=== PATIENT | female | born 1950 | race Caucasian/White ===

== ENCOUNTER → 2016-09-23 | Outpatient (CLI) | payer MEDICARE, BC ==
--- NOTE | 2016-09-23 10:53 | MM ---
Reason for exam: additional evaluation requested from prior study. Last mammogram was performed 1 year ago. History: Patient is postmenopausal, has history of other cancer at age 59, has history of breast cancer at age 49, and is nulliparous. Family history of breast cancer in mother at age 69. 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 Malignant excisional biopsy of the left breast, August 20, 1999. Cyst aspiration of the left breast. Lumpectomy of the left breast. Radiation therapy of the left breast. Took antineoplastic for 5 years 9 months beginning at age 49. Physical Findings: Nurse did not find any significant physical abnormalities on exam. MG 3D Diag Mammo W/Cad MACI Bilateral CC and MLO view(s) were taken. XCCL and spot compression XCCM view(s) were taken of the left breast. Prior study comparison: September 19, 2015, bilateral MG 3d diag mammo w/cad MACI. September 17, 2014, bilateral MG diagnostic mammo w CAD MACI. August 14, 2013, CAD bilateral diagnostic mammogram. March 23, 2012, CAD bilateral diagnostic mammogram. The breast tissue is heterogeneously dense. This may lower the sensitivity of mammography. Post surgical and post therapy changes in the left breast with surgical clips and fat necrosis calcifications. No significant new findings when compared with previous films. These results were verbally communicated with the patient and result sheet given to the patient on 09/23/16. ASSESSMENT: Benign, BI-RAD 2 RECOMMENDATION: Follow-up diagnostic mammogram of both breasts in 1 year.
== END | disposition home or self-care (01) ==
LOC: RADMAMWWP 10:05
PROVIDERS: ATTEND Family Medicine
DX: Z08 Encounter for follow-up examination after completed treatment for malignant neoplasm (principal); Z85.3 Personal history of malignant neoplasm of breast
CPT/HCPCS: G0204; G0279

== ENCOUNTER 2017-04-09 10:43 | Emergency (ER) | payer MEDICARE, BC ==
[2017-04-09] MEDS ORDERED: HYDROcodone/APAP 7.5-325MG 1 EACH TAB PO ONE (11:21)
--- NOTE | 2017-04-09 11:28 | ED ---
Wound/Laceration HPI - General Source: patient, RN notes reviewed Mode of arrival: wheelchair Limitations: no limitations <Jeremy Rodgers - Last Filed: 04/09/17 12:29> <Galo Milner - Last Filed: 04/09/17 16:43> - General Chief Complaint: Wound/Laceration Stated Complaint: FALL, RT ARM INJURY/LACERATION Time Seen by Provider: 04/09/17 11:19 - History of Present Illness Initial Comments: This a 66-year-old female presents emergency Department chief complaint right forearm laceration. Patient states she was out watering her virgen states she went step off edge of the back states that she slipped and cut her arm on the neck. Patient's tetanus is up-to-date within last 5 years. She denies any head injury no LOC. Patient states her arm is very painful, she has good range of motion of her right elbow, right wrist. Patient denies any other notable injuries at this time patient states she is able to ambulate without difficulty. (Jeremy Rodgers) - Related Data Previous Rx's Medication Instructions Recorded Cephalexin [Keflex] 500 mg PO Q6HR #28 cap 04/09/17 Hydrocodone/Acetaminophen [Yellow Jacket 1 tab PO Q6HR PRN #15 tab 04/09/17 5-325] Ondansetron Odt [Zofran Odt] 4 mg PO Q8HR PRN #10 tab 04/09/17 Allergies Allergy/AdvReac Type Severity Reaction Status Date / Time Sulfa (Sulfonamide AdvReac Rash/Hives Verified 04/09/17 10:48 Antibiotics) Review of Systems ROS Other: All systems not noted in ROS Statement are negative. <Jeremy Rodgers - Last Filed: 04/09/17 12:29> ROS Other: All systems not noted in ROS Statement are negative. <Galo Milner - Last Filed: 04/09/17 16:43> ROS Statement: Those systems with pertinent positive or pertinent negative responses have been documented in the HPI. Past Medical History Past Medical History: No Reported History History of Any Multi-Drug Resistant Organisms: None Reported Additional Past Surgical History / Comment(s): lumpectomy Past Psychological History: No Psychological Hx Reported Smoking Status: Never smoker Past Alcohol Use History: None Reported Past Drug Use History: None Reported <Jeremy Rodgers - Last Filed: 04/09/17 12:29> General Exam Limitations: no limitations General appearance: alert, in no apparent distress Head exam: Present: atraumatic, normocephalic, normal inspection Eye exam: Present: normal appearance, PERRL, EOMI. Absent: scleral icterus, conjunctival injection, periorbital swelling ENT exam: Present: normal exam, mucous membranes moist Neck exam: Present: normal inspection, full ROM. Absent: tenderness, meningismus, lymphadenopathy Respiratory exam: Present: normal lung sounds bilaterally. Absent: respiratory distress, wheezes, rales, rhonchi, stridor Cardiovascular Exam: Present: regular rate, normal rhythm, normal heart sounds. Absent: systolic murmur, diastolic murmur, rubs, gallop, clicks Extremities exam: Present: other (Right forearm there is a 6 cm total length irregular laceration slightly V-shaped there is no foreign bodies noted patient has full strength of right hand, wrist and right elbow full range of motion vascular intact) Neurological exam: Present: alert, oriented X3, CN II-XII intact, reflexes normal. Absent: motor sensory deficit Skin exam: Present: warm, dry <Jeremy Rodgers - Last Filed: 04/09/17 12:29> Procedures - Laceration Laceration #1 Consent Obtained: verbal consent Indication: laceration Site: upper extremity (Right forearm) Size (cm): 6 Description: flap, irregular Depth: simple, single layer Anesthetic Used: lidocaine 1%, without epi Anesthesia Technique: local infiltration Amount (mls): 8 Pre-repair: wound explored, irrigated extensively, deep structures intact Type of Sutures: nylon Size of Sutures: 4-0 Number of Sutures: 16 Technique: simple, interrupted Patient Tolerated Procedure: no complications <Jeremy Rodgers - Last Filed: 04/09/17 12:29> Medical Decision Making <Jeremy Rodgers - Last Filed: 04/09/17 12:29> <Galo Milner - Last Filed: 04/09/17 16:43> - Medical Decision Making 66-year-old female presented emergency from for right forearm injury, laceration. Patient had a fall there is no acute fracture. Patient's tetanus is up-to-date. Patient had no other acute injuries no head injury no LOC. Patient's laceration was thoroughly cleaned, closed with sutures patient was given wound care instructions were return in 10 days for suture removal patient we discharge on antibiotics at this time due to the nature of the injury and . Patient will follow with PCP in 2 days for recheck. (Jeremy Rodgers) 66-year-old female presenting with right forearm laceration. Patient's tetanus is up-to-date. X-ray shows no foreign body. Laceration is repaired in the emergency department. Patient will follow up with primary care physician. Return with signs of infection. (aGlo Milner) Disposition Time of Disposition: 12:31 <Jeremy Rodgers - Last Filed: 04/09/17 12:29> <Galo Milner - Last Filed: 04/09/17 16:43> Clinical Impression: Fall, Laceration of right forearm Disposition: HOME SELF-CARE Condition: Stable Instructions: Care For Your Stitches (ED), Laceration (ED) Additional Instructions: Please return to the Emergency Department if symptoms worsen or any other concerns. Prescriptions: Cephalexin [Keflex] 500 mg PO Q6HR #28 cap Hydrocodone/Acetaminophen [Yellow Jacket 5-325] 1 tab PO Q6HR PRN #15 tab PRN Reason: Pain Ondansetron Odt [Zofran Odt] 4 mg PO Q8HR PRN #10 tab PRN Reason: Nausea Referrals: Lianna Holman MD [Primary Care Provider] - 1-2 days
--- NOTE | 2017-04-09 11:40 | XR ---
EXAMINATION TYPE: XR forearm RT , 2 VIEWS DATE OF EXAM ORDERED: 04/09/2017 HISTORY: Pain. COMPARISON: None. FINDINGS: There is a soft tissue defect in the medial aspect of the forearm. No fracture, dislocatio n or radiopaque foreign body is seen. IMPRESSION: NO ACUTE OSSEOUS LESION.
[2017-04-09] MEDS ORDERED: ONDANSETRON ODT 4 MG TAB PO STA (12:00)
[2017-04-09 12:44] VITALS: BP 137/85; PULSE 75; RESP 17; TEMP 97.9
== END 2017-04-09 12:42 | disposition home or self-care (01) ==
LOC: EC 10:43
DX: S51.811A Laceration without foreign body of right forearm, initial encounter (principal); Z88.2 Allergy status to sulfonamides; W26.8XXA Contact with other sharp object(s), not elsewhere classified, initial encounter; Y93.89 Activity, other specified
CPT/HCPCS: 12002; 99283

== ENCOUNTER → 2017-09-16 | Outpatient (CLI) | payer MEDICARE, BC ==
--- NOTE | 2017-09-16 14:12 | MM ---
Reason for exam: clinical finding. Last mammogram was performed 1 year ago. History: Patient is postmenopausal, has history of other cancer at age 59, has history of breast cancer at age 49, and is nulliparous. Family history of breast cancer in mother at age 69. 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 Malignant excisional biopsy of the left breast, August 20, 1999. Cyst aspiration of the left breast. Lumpectomy of the left breast. Radiation therapy of the left breast. Took antineoplastic for 5 years 9 months beginning at age 49. Physical Findings: Nurse did not find any significant physical abnormalities on exam. MG 3D Diag Mammo W/Cad MACI Bilateral CC and MLO view(s) were taken. Prior study comparison: September 23, 2016, bilateral MG 3d diag mammo w/cad MACI. September 19, 2015, bilateral MG 3d diag mammo w/cad MACI. The breast tissue is heterogeneously dense. This may lower the sensitivity of mammography. No suspicious abnormality. Post therapy change on the left breast. No significant new findings when compared with previous films. These results were verbally communicated with the patient and result sheet given to the patient on 09/16/17. ASSESSMENT: Benign, BI-RAD 2 RECOMMENDATION: Routine screening mammogram of both breasts in 1 year.
--- NOTE | 2017-09-16 14:14 | USB ---
Reason for exam: clinical finding. History: Patient is postmenopausal, has history of other cancer at age 59, has history of breast cancer at age 49, and is nulliparous. Family history of breast cancer in mother at age 69. 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 Malignant excisional biopsy of the left breast, August 20, 1999. Cyst aspiration of the left breast. Lumpectomy of the left breast. Radiation therapy of the left breast. Took antineoplastic for 5 years 9 months beginning at age 49. US Breast RT Right breast ultrasound includes all four quadrants, the retroareolar region and axilla. Finding demonstrates no cystic or solid lesion seen. No cystic or solid mass. No suspicious sonographic finding. These results were verbally communicated with the patient and result sheet given to the patient on 09/16/17. ASSESSMENT: Benign, BI-RAD 2 RECOMMENDATION: Routine screening mammogram of both breasts in 1 year. Manage patient on a clinical basis.
== END | disposition home or self-care (01) ==
LOC: RADMAMWWP 12:44
PROVIDERS: ATTEND Family Medicine
DX: N63.11 Unspecified lump in the right breast, upper outer quadrant (principal); Z85.3 Personal history of malignant neoplasm of breast
CPT/HCPCS: 77066; 76641; G0279

== ENCOUNTER → 2018-10-23 | Outpatient (CLI) | payer MEDICARE, BC ==
--- NOTE | 2018-10-23 17:21 | BD ---
EXAMINATION TYPE: Axial Bone Density DATE OF EXAM: 10/23/2018 COMPARISON: NONE CLINICAL HISTORY: 68-year-old female asymptomatic postmenopausal screening Height: 62.5 IN Weight: 156 LBS FRAX RISK QUESTIONS: History of Fracture in Adulthood: LT WRIST FX AGE 66 RISK FACTORS HISTORY OF: History of Wrist Fracture: LEFT When: AGE 66 Family History of Osteoporosis: GRANDMOTHER(P), AUNT (M) Active: YES Postmenopausal woman: AGE 49 MEDICATIONS: Thyroid Medications: YES Which medication: LEVOTHYROXINE How Lon+ YEARS Additional Medications: LEVOTHYROXINE, HCTZ, DETROL, VYTORIN, SERTRALINE, ALPRAZOLAM, ACETAMINOPHEN, ZOLPIDEM TARTARATED TABS, Additional History: BREAST CANCER WITH RADIATION AGE 49 EXAM MEASUREMENTS: Bone mineral densitometry was performed using the [employer] System. Bone mineral density as measured about the Lumbar spine is: ----- L1-L4(G/cm2): 1.051 T Score Values are as follows: ----- L2: -2.2 ----- L3: -0.7 ----- L4: 0.9 ----- L1-L4: -1.1 Bone mineral density BASELINE Bone mineral density about the R hip (g/cm2): 0.784 Bone mineral density about the L hip (g/cm2): 0.747 T Score values are as follows: -----R Neck: -1.8 -----L Neck: -2.1 -----R Total: -1.0 -----L Total: -1.5 Bone mineral density BASELINE IMPRESSION: Osteopenia (T Score between -2.5 and -1). There is slightly increased risk of fracture and the patient may be considered for treatment. Re-Screen 2-5 years. NOTE: T-SCORE=SD OF THE YOUNG ADULT MEAN.
--- NOTE | 2018-10-24 13:04 | MM ---
Reason for exam: screening (asymptomatic). Last mammogram was performed 1 year and 1 month ago. History: Patient is postmenopausal, has history of other cancer at age 59, has history of breast cancer at age 49, and is nulliparous. Family history of breast cancer in mother at age 69. 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 Malignant excisional biopsy of the left breast, August 20, 1999. Cyst aspiration of the left breast. Lumpectomy of the left breast. Radiation therapy of the left breast. Took antineoplastic for 5 years 9 months beginning at age 49. Physical Findings: A clinical breast exam by your physician is recommended on an annual basis and results should be correlated with mammographic findings. MG 3D Screening Mammo W/Cad Bilateral CC and MLO view(s) were taken. Prior study comparison: September 16, 2017, bilateral MG 3d diag mammo w/cad MACI. September 23, 2016, bilateral MG 3d diag mammo w/cad MACI. The breast tissue is heterogeneously dense. This may lower the sensitivity of mammography. Post surgical and post therapy changes left breast with deformity, fat necrosis calcifications and surgical clips. No significant changes when compared with prior studies. ASSESSMENT: Benign, BI-RAD 2 RECOMMENDATION: Routine screening mammogram of both breasts in 1 year.
== END | disposition home or self-care (01) ==
LOC: RADMAMWWP 15:09
PROVIDERS: ATTEND Family Medicine
DX: Z12.31 Encounter for screening mammogram for malignant neoplasm of breast (principal); M85.88 Other specified disorders of bone density and structure, other site; Z78.0 Asymptomatic menopausal state
CPT/HCPCS: 77063; 77067; 77080

== ENCOUNTER → 2020-12-22 | Outpatient (CLI) | payer MEDICARE, BC ==
--- NOTE | 2020-12-23 09:08 | MM ---
Reason for exam: screening (asymptomatic). Last mammogram was performed 2 years and 2 months ago. History: Patient is postmenopausal, has history of other cancer at age 59, has history of breast cancer at age 49, and is nulliparous. Family history of breast cancer in mother at age 69. 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 Malignant excisional biopsy of the left breast, August 20, 1999. Cyst aspiration of the left breast. Lumpectomy of the left breast. Radiation therapy of the left breast. Took antineoplastic for 5 years 9 months beginning at age 49. Physical Findings: A clinical breast exam by your physician is recommended on an annual basis and results should be correlated with mammographic findings. MG 3D Screening Mammo W/Cad Bilateral CC and MLO view(s) were taken. Prior study comparison: September 16, 2017, bilateral MG 3d diag mammo w/cad MACI. September 19, 2015, bilateral MG 3d diag mammo w/cad MACI. The breast tissue is heterogeneously dense. This may lower the sensitivity of mammography. Finding #1: There are typically benign vascular calcifications in the right breast. Finding #2: There is stable, decreased in size architectural distortion and dystrophic calcifications with clip in the left breast consistent with know treatment change from left breast cancer. There is no discrete abnormality. ASSESSMENT: Benign, BI-RAD 2 RECOMMENDATION: Routine screening mammogram of both breasts in 1 year.
== END | disposition home or self-care (01) ==
LOC: RADMAMWWP 10:11
PROVIDERS: ATTEND Family Medicine
DX: Z12.31 Encounter for screening mammogram for malignant neoplasm of breast (principal); Z78.0 Asymptomatic menopausal state; Z85.3 Personal history of malignant neoplasm of breast; Z80.3 Family history of malignant neoplasm of breast
CPT/HCPCS: 77063; 77067

== ENCOUNTER → 2022-03-03 | Outpatient (CLI) | payer MEDICARE, BC ==
--- NOTE | 2022-03-05 08:31 | MM ---
Reason for Exam: Screening (asymptomatic). Last mammogram was performed 1 year(s) and 2 month(s) ago. Patient History: Menarche at age 11. Patient has no children. Postmenopausal. Breast cancer, left, age 49. Other cancer, age 59. Lumpectomy on the Left side. Cyst Aspiration on the Left side. 08/20/1999, Malignant Excisional Biopsy on the left side. 09/08/1999, Malignant Quadrantectomy on the left side. Radiation Therapy, left. Mother had breast cancer, age 69. Prior Study Comparison: 09/16/2017 Bilateral Diagnostic Mammogram, [facility]. 10/23/2018 Bilateral Screening Mammogram, [facility]. 12/22/2020 Bilateral Screening Mammogram, [facility]. Tissue Density: The breast tissue is extremely dense which could obscure a lesion on mammography. Findings: Analyzed By CAD. Postoperative changes left breast with the dystrophic calcifications seen. No mass or suspicious calcifications right breast at this time. Overall Assessment: Benign, BI-RAD 2 Management: Screening Mammogram of both breasts in 1 year. A clinical breast exam by your physician is recommended on an annual basis and results should be correlated with mammographic findings. Electronically signed and approved by: Scott Anders M.D. Radiologis
--- NOTE | 2022-03-05 15:08 | BD ---
EXAMINATION TYPE: Axial Bone Density DATE OF EXAM: 03/03/2022 COMPARISON: 10.23.2018 CLINICAL HISTORY: 71 years year old Female. ICD-10 CODE: disoder of bone M85.9 Height: 62.4 Weight: 156 FRAX RISK QUESTIONS: Family History (Parent hip fracture): YES, NO FX History of Fracture in Adulthood: YES RISK FACTORS HISTORY OF: LT WRIST AT 66 YRS OLD History of Wrist Fracture: YES, LT AT 66 YRS OLD Family History of Osteoporosis: YES, Postmenopausal woman: AT 49 Hyperparathyroidism: NO Adrenal Insufficiency: NO MEDICATIONS: Thyroid Medications: YES, SYNTHROID FOR ABOUT 20 YRS Additional Medications: BP MEDS, XANAX, ZOLOFT, NSAIDS, PAIN MEDS, DETROL, HX OF RADIATION, CALCIUM, VIT D, STATIN FOR CHOLESTEROL Additional History: LBL, HYPERTENSION, ANXIETY/DEPRESSION, THYROID, CHRONIC PAIN, BREAST CANCER WITH RADIATION AT 49 YRS OLD, CHOLESTEROL, EXAM MEASUREMENTS: Bone mineral densitometry was performed using the [employer]. Bone mineral density as measured about the Lumbar spine is: ----- L1-L4(G/cm2): 0.925 T Score Values are as follows: ----- L1: -3.3 ----- L2: -2.2 ----- L3: -2.2 ----- L4: -0.4 ----- L1-L4: -2.1 Bone mineral density has: Decreased -11.4% since study of: 10.23.2018 Bone mineral density about the R hip (g/cm2): 0.855 Bone mineral density about the L hip (g/cm2): 0.781 T Score values are as follows: -----R Neck: -2.0 -----L Neck: -2.1 -----R Total: -1.2 -----L Total: -1.8 Bone mineral density has: Decreased -4.1% since study of: 10.23.2018 FRAX%s: The graph provided illustrates a 20.3% chance for a major osteoporotic fx and a 4.7% chance f or the hips probability for fx in 10 years time. IMPRESSION: Osteopenia (T Score between -2.5 and -1). There is slightly increased risk of fracture and the patient may be considered for treatment. Re-Screen 2-5 years. NOTE: T-SCORE=SD OF THE YOUNG ADULT MEAN.
== END | disposition home or self-care (01) ==
LOC: RADBDWWP 09:07
PROVIDERS: ATTEND Family Medicine
DX: Z12.31 Encounter for screening mammogram for malignant neoplasm of breast (principal); M81.0 Age-related osteoporosis without current pathological fracture; Z78.0 Asymptomatic menopausal state
CPT/HCPCS: 77063; 77067; 77080

== ENCOUNTER → 2023-03-09 | Outpatient (CLI) | payer MEDICARE, BC ==
--- NOTE | 2023-03-10 08:30 | MM ---
Reason for Exam: Screening (asymptomatic). Last mammogram was performed 1 year(s) and 1 month(s) ago. Patient History: Menarche at age 11. Patient has no children. Postmenopausal. Breast cancer, left, age 49. Other cancer, age 59. Lumpectomy on the Left side. Cyst Aspiration on the Left side. 08/20/1999, Malignant Excisional Biopsy on the left side. 09/08/1999, Malignant Quadrantectomy on the left side. Radiation Therapy, left. Mother had breast cancer, age 69. Prior Study Comparison: 10/23/2018 Bilateral Screening Mammogram, [facility]. 12/22/2020 Bilateral Screening Mammogram, [facility]. 03/03/2022 Bilateral MG 3D screening mammo w/cad, [facility]. Tissue Density: The breast tissue is heterogeneously dense. This may lower the sensitivity of mammography. Findings: Analyzed By CAD. Postsurgical changes with calcifications in the left. There is no suspicious group of microcalcifications or new suspicious mass in either breast. Overall Assessment: Benign, BI-RAD 2 Management: Screening Mammogram of both breasts in [address] [facility] will attempt to contact patient to return for supplemental views and ultrasound if indicated. Patient should continue monthly self-breast exams. A clinical breast exam by your physician is recommended on an annual basis. This exam should not preclude additional follow-up of suspicious palpable abnormalities. Note on Barbara scores and lifetime risk: 1. A Barbara score greater than 3% is considered moderate risk. If this is the case, consider specialist referral to assess eligibility for a risk reducing agent. 2. If overall lifetime risk for the development of breast cancer is 20% or higher, the patient may qualify for future screening with alternating mammogram and breast MRI. Electronically signed and approved by: Galo Coy DO
== END | disposition home or self-care (01) ==
LOC: RADMAMWWP 11:08
PROVIDERS: ATTEND Family Medicine
DX: Z12.31 Encounter for screening mammogram for malignant neoplasm of breast (principal); Z78.0 Asymptomatic menopausal state; Z80.3 Family history of malignant neoplasm of breast
CPT/HCPCS: 77063; 77067

== ENCOUNTER → 2023-08-26 | Outpatient (CLI) | payer MEDICARE, BC ==
--- NOTE | 2023-09-04 12:53 | MR ---
EXAMINATION TYPE: MR brain/orbits wo/w con DATE OF EXAM: 08/26/2023 2:23 PM CLINICAL INDICATION:Female, 73 years old with history of H53.19 SUBJECTIVE VISUAL DISTURBANCES; PHH, Visual disturbance. COMPARISON: None. TECHNIQUE: Multi planar, multi sequence imaging was performed through the orbits/face. Post contrast imaging was performed after the administration of 7 cc of Gadavist intravenously. FINDINGS, ORBITS: The globes appear symmetrical. Bilaterally aphakia. Signal intensity of the globes and optic nerves are within normal limits. The intraorbital fat appears preserved. Both lacrimal g lands are unremarkable. The extraocular muscles appear symmetric. After administration of contrast, n o abnormal enhancement is seen. FINDINGS, BRAIN: The moraes-white junctions, ventricular system, and cisterns do appear unremarkable. Diffusion-weighted imaging shows no evidence of restricted diffusion. Scattered foci of high T2 sig nal intensity are seen within the periventricular white matter. Cavernous sinus is within normal lewis its. After administration of contrast, no abnormal enhancement is seen within the brain. The bone marrow signal is within normal limits. Paranasal sinuses and mastoid air cells: Mild scattered paranasal sinus disease. IMPRESSION: 1. No evidence of intraorbital mass or significant abnormality. 2. No evidence of intracranial mass nor acute/subacute CVA accident. 3. Nonspecific white matter changes are identified likely small vessel ischemic disease.
== END | disposition home or self-care (01) ==
LOC: RADMRIMAIN 13:12
PROVIDERS: ATTEND Ophthalmology
DX: G93.89 Other specified disorders of brain (principal); H53.19 Other subjective visual disturbances; H53.42 Scotoma of blind spot area; H47.292 Other optic atrophy, left eye
CPT/HCPCS: 70543; 70553; A9585

== ENCOUNTER → 2023-10-25 | Outpatient (CLI) | payer MEDICARE, BC ==
--- NOTE | 2023-10-26 11:33 | US ---
EXAMINATION TYPE: US transvaginal DATE OF EXAM: 10/25/2023 COMPARISON: NONE CLINICAL INDICATION: Female, 73 years old with history of N95.0 POSTMENOPAUSAL BLEEDING; Pt states sh e had one day of spotting in September. G0. No pelvic surgeries. Hx of breast cancer. On tamoxifen from [id number]. Menopause around 24 years ago TECHNIQUE: Transvaginal (TV). Date of LMP: Around 24 years ago EXAM MEASUREMENTS: Uterus: 6.7 x 4.8 x 3.6 cm Endometrial Stripe: Not seen Right Ovary: Not seen due to bowel gas Left Ovary: Not seen due to bowel gas Proj Engineer notes:Slightly limited due to pt not tolerating transvaginal exam well. 1. Uterus: Anteverted Large hypoechoic area with calcifications seen measuring 3.4 x 3.5 x 3.3cm l ocated centrally within the uterus. 2. Endometrium: The above hypoechoic area obscures the endometrium. 3. Right Ovary: Not seen 4. Left Ovary: Not seen 5. Bilateral Adnexa: wnl 6. Posterior cul-de-sac: wnl IMPRESSION: 1. Rounded 3.5 cm heterogeneous structure with prominent calcification centered within the uterus. Co nsider large uterine fibroid with prominent submucosal component obscuring the endometrium. Given pat ient's postmenopausal bleeding, consider further CREATIVE ENGAGEMENT DIRECTOR evaluation. Also, female pelvic MRI can help assess the junctional anatomy. 2. Unable to visualize either ovary.
== END | disposition home or self-care (01) ==
LOC: RADUSWWP 15:55
PROVIDERS: ATTEND Family Medicine
DX: N95.0 Postmenopausal bleeding (principal); D25.0 Submucous leiomyoma of uterus; Z85.3 Personal history of malignant neoplasm of breast
CPT/HCPCS: 76830

== ENCOUNTER → 2024-04-10 | Outpatient (CLI) | payer MEDICARE, BC | END | disposition home or self-care (01) | LOC: LABPRL 10:15 | PROVIDERS: ATTEND Family Medicine | DX: I10 Essential (primary) hypertension (principal); E78.2 Mixed hyperlipidemia; E03.9 Hypothyroidism, unspecified | CPT/HCPCS: 80053; 80061; 84443; 85025 ==

== ENCOUNTER → 2024-05-15 | Outpatient (CLI) | payer MEDICARE, BC ==
--- NOTE | 2024-05-16 11:12 | MM ---
Reason for Exam: Screening (asymptomatic). Last mammogram was performed 1 year(s) and 2 month(s) ago. Patient History: Menarche at age 11. Patient has no children. Postmenopausal. Breast cancer, left, age 49. Other cancer, age 59. Lumpectomy on the Left side. Cyst Aspiration on the Left side. 08/20/1999, Malignant Excisional Biopsy on the left side. 09/08/1999, Malignant Quadrantectomy on the left side. Radiation Therapy, left. Mother had breast cancer, age 69. Prior Study Comparison: 12/22/2020 Bilateral Screening Mammogram, [facility]. 03/03/2022 Bilateral MG 3D screening mammo w/cad, [facility]. 03/09/2023 Bilateral MG 3D screening mammo w/cad, [facility]. Tissue Density: The breasts are heterogeneously dense, which may obscure small masses. Findings: Analyzed By CAD. There is no suspicious group of microcalcifications or new suspicious mass in either breast. Colectomy changes left breast with dense calcifications noted. No recurrent mass seen. Overall Assessment: Benign, BI-RAD 2 Management: Screening Mammogram of both breasts in 1 year. . Patient should continue monthly self-breast exams. A clinical breast exam by your physician is recommended on an annual basis. This exam should not preclude additional follow-up of suspicious palpable abnormalities. Note on Barbara scores and lifetime risk: 1. A Barbara score greater than 3% is considered moderate risk. If this is the case, consider specialist referral to assess eligibility for a risk reducing agent. 2. If overall lifetime risk for the development of breast cancer is 20% or higher, the patient may qualify for future screening with alternating mammogram and breast MRI. Electronically signed and approved by: Scott Anders M.D. Radiologis
== END | disposition home or self-care (01) ==
LOC: RADMAMWWP 12:30
PROVIDERS: ATTEND Family Medicine
DX: Z12.31 Encounter for screening mammogram for malignant neoplasm of breast
CPT/HCPCS: 77063; 77067